=== PATIENT | female | born 1995 | race Caucasian/White ===

== ENCOUNTER 2017-04-17 22:50 | Emergency (ER) | payer OTHER ==
[~2017-04-17] VITALS: Ht 170.2 cm; Wt 59.0 kg
[2017-04-18] MEDS ORDERED: ONDANSETRON PF 4 MG/2 ML VIAL. IV ONE (00:15)
[2017-04-18] MEDS ORDERED: MORPHINE SULFATE 4 MG/ML DISP.SYRIN. IV ONE (00:15)
[2017-04-18] MEDS ORDERED: KETOROLAC 30 MG/ML VIAL. IV ONE (00:15)
[2017-04-18] MEDS ORDERED: IV NORMAL SALINE 1,000ML 1,000 ML IV ONE (00:15)
[2017-04-18] MEDS ORDERED: IOHEXOL 300 MG/ML 75 ML VIAL. IV ONE (02:00)
[2017-04-18 02:04] LABS: BASO # 0.1 x10^3/uL (0.0-0.2); BASO % 1 % (0-3); EOS # 0.4 x10^3/uL (0.0-0.7); EOS % 5 % (0-3); HEMATOCRIT 40.5 % (36.0-47.0); HEMOGLOBIN 13.8 g/dL (12.0-15.5); LYMPH # 3.2 x10^3/uL (1.0-4.8); LYMPH % 39 % (24-48); MEAN CORPUSCULAR HEMOGLOBIN 31 pg (25-35); MEAN CORPUSCULAR HGB CONC 34 g/dL (31-37); MEAN CORPUSCULAR VOLUME 92 fL (79-100); MONO # 0.5 x10^3/uL (0.0-1.1); MONO % 7 % (0-9); NEUT # 3.9 x10^3uL (1.8-7.7); NEUT % 48 % (31-73); PLATELET COUNT 214 x10^3/uL (140-400); RED BLOOD COUNT 4.42 x10^6/uL (3.50-5.40); RED CELL DISTRIBUTION WIDTH 12.8 % (11.5-14.5); WHITE BLOOD COUNT 8.2 x10^3/uL (4.0-11.0)
[2017-04-18 02:08] LABS: BILIRUBIN,URINE NEG (NEG); CLARITY,URINE HAZY; COLOR,URINE YELLOW; GLUCOSE,URINE NEG (NEG); NITRITE,URINE NEG (NEG); RBC,URINE 0 /HPF (0-2); UROBILINOGEN,URINE 0.2 mg/dL (0.2 mg/dL)
[2017-04-18 02:09] LABS: AMORPHOUS SEDIMENT,UR PRESENT /HPF; BACTERIA,URINE FEW /HPF (0-FEW); SQUAMOUS EPITHELIAL CELL,UR FEW /LPF; WBC,URINE OCC /HPF (0-4)
[2017-04-18 02:12] LABS: ALBUMIN 3.9 g/dL (3.4-5.0); ALBUMIN/GLOBULIN RATIO 1.4 (1.0-1.7); CALCIUM 8.7 mg/dL (8.5-10.1); CREATININE 0.7 mg/dL (0.6-1.0); GFR 105.6; POTASSIUM 3.4 mmol/L (3.5-5.1); TOTAL BILIRUBIN 0.3 mg/dL (0.2-1.0); TOTAL PROTEIN 6.7 g/dL (6.4-8.2)
--- NOTE | 2017-04-18 03:24 | RAD ---
INDICATION: LLQ PAIN, LOW ABD CRAMPING COMPARISON: None. TECHNIQUE: Axial CT images were obtained through the abdomen and pelvis with intravenous contrast. One or more of the following individualized dose reduction techniques were utilized for this examination: 1. Automated exposure control; 2. Adjustment of the mA and/or kV according to patient size; 3. Use of iterative reconstruction technique. FINDINGS: Abdomen: Chest Base: Partially imaged without gross abnormality. Vessels: No abdominal aortic aneurysm. Liver/Biliary: Mild prominence of intrahepatic bile ducts versus mild periportal edema. Pancreas: No peripancreatic edema. Spleen: Normal. Kidneys/Adrenal: Prominent extrarenal pelvis bilaterally. GI: Appendix does not appear grossly inflamed. Air within lumen. Moderate stool within the colon without evidence of bowel obstruction. Multiple cystic structures in left adnexa versus tubular fluid filled structure. This measures up to 48 x 22 mm. Pelvis: Bladder: No definite adjacent inflammation. Small free fluid in pelvis. Intrauterine device. IMPRESSION: 1. No evidence of bowel obstruction or appendicitis. 2. Multiple cystic structures within the left adnexa versus fluid-filled tubular structure. This could be secondary to adnexal cystic lesions although hydrosalpinx also in differential. Pelvic ultrasound may be helpful to further evaluate. There is some free fluid in the pelvis. 3. Prominent extrarenal pelvis bilaterally. 4. Questionable mild periportal edema or intraductal biliary ductal prominence. Electronically signed by: Zander Arellano MD (04/18/2017 3:21 AM) [facility]
--- NOTE | 2017-04-18 03:38 | PHYS DOC ---
Past History Past Medical History: No Pertinent History Past Surgical History: No Surgical History Alcohol Use: None Drug Use: None Adult General Chief Complaint Chief Complaint: ABDOMINAL PAIN HPI HPI Patient is a 22-year-old female presenting to the emergency department for evaluation of left lower quadrant abdominal pain has been going on most of the day today that she says is cramps achy and is associated with some nausea but no fevers vomiting dysuria hematuria vaginal bleeding vaginal discharge diarrhea or constipation. Patient denies any prior abdominal surgeries. She is in no obvious distress with normal vital signs. Review of Systems Review of Systems Constitutional: Denies fever or chills [] Respiratory: Denies cough or shortness of breath [] Cardiovascular: No additional information not addressed in HPI [] GI: + abdominal pain, nausea. No vomiting, bloody stools or diarrhea [] : Denies dysuria or hematuria [] Musculoskeletal: Denies back pain or joint pain [] Current Medications Current Medications Current Medications Medications (Trade) Dose Ordered Sig/Re Start Time Stop Time Status Last Admin Dose Admin Iohexol (Omnipaque 300 Mg/ml) 75 ml 1X ONCE 04/18/17 02:00 04/18/17 02:04 DC 04/18/17 02:23 75 ML Ketorolac Tromethamine (Toradol) 30 mg 1X ONCE 04/18/17 00:15 04/18/17 02:04 DC 04/18/17 02:02 30 MG Morphine Sulfate (Morphine 4mg Syringe) 4 mg 1X ONCE 04/18/17 00:15 04/18/17 02:04 DC 04/18/17 02:02 4 MG Ondansetron HCl (Zofran) 4 mg 1X ONCE 04/18/17 00:15 04/18/17 02:04 DC 04/18/17 02:02 4 MG Sodium Chloride 1,000 ml @ 1,000 mls/hr 1X ONCE 04/18/17 00:15 04/18/17 02:04 DC 04/18/17 01:00 1,000 MLS/HR Allergies Allergies Allergies Coded Allergies Type Severity Reaction Last Updated Verified No Known Drug Allergies 04/18/17 No Physical Exam Physical Exam Constitutional: Well developed, well nourished, no acute distress, non-toxic appearance. [] Cardiovascular:Heart rate regular rhythm, no murmur [] Lungs & Thorax: Bilateral breath sounds clear to auscultation [] Abdomen: Bowel sounds normal, soft, + LLQ tenderness, no rebound or guarding, no masses, no pulsatile masses. [] Skin: Warm, dry, no erythema, no rash. [] Back: No tenderness, no CVA tenderness. [] Extremities: No tenderness, no cyanosis, no clubbing, ROM intact, no edema. [] Neurologic: Alert and oriented X 3, normal motor function, normal sensory function, no focal deficits noted. [] Current Patient Data Vital Signs Vital Signs Date Time Temp Pulse Resp B/P (MAP) Pulse Ox O2 Delivery O2 Flow Rate FiO2 04/17/17 23:10 98.2 78 18 98 Room Air Lab Results Laboratory Tests Test 04/18/17 01:04 04/18/17 01:40 04/18/17 01:50 White Blood Count 8.2 x10^3/uL (4.0-11.0) Red Blood Count 4.42 x10^6/uL (3.50-5.40) Hemoglobin 13.8 g/dL (12.0-15.5) Hematocrit 40.5 % (36.0-47.0) Mean Corpuscular Volume 92 fL (79-100) Mean Corpuscular Hemoglobin 31 pg (25-35) Mean Corpuscular Hemoglobin Concent 34 g/dL (31-37) Red Cell Distribution Width 12.8 % (11.5-14.5) Platelet Count 214 x10^3/uL (140-400) Neutrophils (%) (Auto) 48 % (31-73) Lymphocytes (%) (Auto) 39 % (24-48) Monocytes (%) (Auto) 7 % (0-9) Eosinophils (%) (Auto) 5 % (0-3) H Basophils (%) (Auto) 1 % (0-3) Neutrophils # (Auto) 3.9 x10^3uL (1.8-7.7) Lymphocytes # (Auto) 3.2 x10^3/uL (1.0-4.8) Monocytes # (Auto) 0.5 x10^3/uL (0.0-1.1) Eosinophils # (Auto) 0.4 x10^3/uL (0.0-0.7) Basophils # (Auto) 0.1 x10^3/uL (0.0-0.2) Sodium Level 141 mmol/L (136-145) Potassium Level 3.4 mmol/L (3.5-5.1) L Chloride Level 105 mmol/L (98-107) Carbon Dioxide Level 32 mmol/L (21-32) Anion Gap 4 (6-14) L Blood Urea Nitrogen 14 mg/dL (7-20) Creatinine 0.7 mg/dL (0.6-1.0) Estimated GFR (Cockcroft-Gault) 105.6 BUN/Creatinine Ratio 20 (6-20) Glucose Level 90 mg/dL (70-99) Calcium Level 8.7 mg/dL (8.5-10.1) Total Bilirubin 0.3 mg/dL (0.2-1.0) Aspartate Amino Transferase (AST) 13 U/L (15-37) L Alanine Aminotransferase (ALT) 16 U/L (14-59) Alkaline Phosphatase 96 U/L (46-116) Total Protein 6.7 g/dL (6.4-8.2) Albumin 3.9 g/dL (3.4-5.0) Albumin/Globulin Ratio 1.4 (1.0-1.7) Urine Collection Type Unknown Urine Color Yellow Urine Clarity Hazy Urine pH 7.5 Urine Specific [place] 1.015 Urine Protein Neg (NEG-TRACE) Urine Glucose (UA) Neg mg/dL (NEG) Urine Ketones (Stick) Neg mg/dL (NEG) Urine Blood Trace (NEG) Urine Nitrite Neg (NEG) Urine Bilirubin Neg (NEG) Urine Urobilinogen Dipstick 0.2 mg/dL (0.2 mg/dL) Urine Leukocyte Esterase Neg (NEG) Urine RBC 0 /HPF (0-2) Urine WBC Occ /HPF (0-4) Urine Squamous Epithelial Cells Few /LPF Urine Amorphous Sediment Present /HPF Urine Bacteria Few /HPF (0-FEW) POC Urine HCG, Qualitative hcg negative (Negative) EKG EKG [] Radiology/Procedures Radiology/Procedures INDICATION: LLQ PAIN, LOW ABD CRAMPING COMPARISON: None. TECHNIQUE: Axial CT images were obtained through the abdomen and pelvis with intravenous contrast. One or more of the following individualized dose reduction techniques were utilized for this examination: 1. Automated exposure control; 2. Adjustment of the mA and/or kV according to patient size; 3. Use of iterative reconstruction technique. FINDINGS: Abdomen: Chest Base: Partially imaged without gross abnormality. Vessels: No abdominal aortic aneurysm. Liver/Biliary: Mild prominence of intrahepatic bile ducts versus mild periportal edema. Pancreas: No peripancreatic edema. Spleen: Normal. Kidneys/Adrenal: Prominent extrarenal pelvis bilaterally. GI: Appendix does not appear grossly inflamed. Air within lumen. Moderate stool within the colon without evidence of bowel obstruction. Multiple cystic structures in left adnexa versus tubular fluid filled structure. This measures up to 48 x 22 mm. Pelvis: Bladder: No definite adjacent inflammation. Small free fluid in pelvis. Intrauterine device. IMPRESSION: 1. No evidence of bowel obstruction or appendicitis. 2. Multiple cystic structures within the left adnexa versus fluid-filled tubular structure. This could be secondary to adnexal cystic lesions although hydrosalpinx also in differential. Pelvic ultrasound may be helpful to further evaluate. There is some free fluid in the pelvis. 3. Prominent extrarenal pelvis bilaterally. 4. Questionable mild periportal edema or intraductal biliary ductal prominence. Electronically signed by: Rosita Arellano MD (04/18/2017 3:21 AM) [facility] DICTATED AND SIGNED BY: ROSITA ARELLANO MD DATE: 04/18/17 0308 Course & Med Decision Making Course & Med Decision Making Patient with nonspecific left lower quadrant pain so labs were done which were normal and urine is unremarkable as well. CT showed left adnexal cystic structure representing cyst versus hydrosalpinx. I strongly recommended that we get a pelvic ultrasound as this is necessary to rule out torsion. Patient says that her pain is gone and she is feeling better and is wanting to go home. She verbalized understanding that an acute condition like ovarian torsion hydrosalpinx or abscess may be missed by not pursuing further diagnostic studies. She accepted the risks of pain infection or Infertility by not doing these tests as I advised. Patient was told to follow with a ACQUISITION ADVISOR as soon as possible and come back to the emergency Department immediately with worsening pain fevers vomiting or other general concerns. Patient verbalized understanding of the above instructions. Dragon Disclaimer Dragon Disclaimer This chart was dictated in whole or in part using Voice Recognition software in a busy, high-work load, and often noisy Emergency Department environment. It may contain unintended and wholly unrecognized errors or omissions. Departure Departure: Impression: Primary Impression: Ovarian cyst Additional Impression: Abdominal pain Disposition: HOME, SELF-CARE Condition: GOOD Referrals: [facility] (PCP) Patient Instructions: Ovarian Cyst Additional Instructions: TAKE 400MG OF IBUPROFEN EVERY 6 HOURS AND THE NORCO FOR BREAKTHROUGH PAIN. FOLLOW WITH YOUR ACQUISITION ADVISOR [facility] FOR FOLLOW UP. Problem Qualifiers LIBERTAD OLIVEIRA DO Apr 18, 2017 03:38
[2017-04-18 03:40] VITALS: BP 124/82
== END 2017-04-18 03:45 | disposition home or self-care (01) ==
LOC: ER 22:50
DX: N83.202 Unspecified ovarian cyst, left side (principal)
CPT/HCPCS: 36415; 74177; 80053; 81001; 81025; 85027; 96361; 96374; 96375; 99285; J1885; J2270; J2405; Q9967; J7030

== ENCOUNTER → 2017-04-23 | Outpatient (CLI) | payer OTHER ==
[2017-04-18 03:40] VITALS: BP 124/82
--- NOTE | 2017-04-23 15:41 | RAD ---
EXAM: Pelvic ultrasound HISTORY: Left adnexal cystic lesion. COMPARISON: CT 04/18/2017. FINDINGS: Sonographic evaluation of the pelvis was performed transabdominally. The uterus is anteverted and measures 7.7 x 4.3 x 2.5 cm. The endometrial stripe measures 4 mm. No masses are identified. There is a small amount of free pelvic fluid. The right ovary measures 3.1 x 1.7 x 1.3 cm. The left ovary measures 4.5 x 1.9 x 4.1 cm. There is normal Doppler flow bilaterally. There are no suspicious lesions. IMPRESSION: 1. No cystic lesion is identified. A small amount of free pelvic fluid may be physiologic or reactive.
== END | disposition home or self-care (01) ==
LOC: US 14:49
PROVIDERS: ATTEND Obstetrics & Gynecology
DX: N83.292 Other ovarian cyst, left side (principal)
CPT/HCPCS: 76856